=== PATIENT | male | born 1990 | race Caucasian/White ===

== ENCOUNTER 2021-07-05 18:45 | Emergency (ER) | payer OTHER, SELFPAY ==
[2021-07-05 19:21] VITALS: BP 184/99; PULSE 70; RESP 18; O2SAT 99; BMI 23.6
--- NOTE | 2021-07-05 19:46 | W.ED.ANIMALB ---
HPI - Animal Bite General: Chief Complaint: Animal Bite Stated Complaint: dog bite Time Seen by Provider: 07/05/21 19:46 History of Present Illness: 30-year-old male patient comes in today with a dog bite. Patient has bite to his left flank. 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 Patient was monitoring 2 dogs in front of them but one of the dogs got behind him and that at him. Patient ended up an abrasion to the left flank area of his back. Patient is concerned of rabies. Review of Systems General: Reports: 10 or more systems reviewed and unremarkable except in HPI and below Resp: Denies: dyspnea GI: Denies: abdominal pain Musc: Reports: back pain Skin/Breast: Reports: erythema and new lesions Physical Exam Const: COMMON NORMALS: alert HENMT: COMMON NORMALS: normocephalic HEAD & SCALP: normocephalic Neck/C-Spine: COMMON NORMALS: full ROM Resp: COMMON NORMALS: normal respiratory effort Cardio: COMMON NORMALS: regular rate RATE: regular rate Back/Pelvis: LUMBAR SPINE/LOWER BACK: Yes lumbar ROM normal and Yes other soft tissue findings (L-shaped 6 cm abrasion) Other lumbar soft tissue findings laterality: left Extremity: COMMON NORMALS: normal to inspection Neuro: SENSORIUM/ORIENTATION: Yes alert Skin: TRAUMA: abrasion (Left flank) Course Vital Signs: Vital signs: Vital Signs Pulse Rate 70 07/05/21 19:21 Respiratory Rate 18 07/05/21 19:21 Blood Pressure 184/99 07/05/21 19:21 Pulse Oximetry 99 07/05/21 19:21 [facility] - Animal Bite Medical Decision Making 30-year-old male patient comes in today with injury sustained from a animal bite. On exam patient had a 4 cm L-shaped abrasion to his left flank. Patient has some soft tissue tenderness. Superficial breakage of the skin was noted. Differential diagnosis includes abrasion, laceration, need for prophylaxis tetanus, postexposure rabies vaccinations. Reviewed exam with patient with recommendations of treatment for tetanus and prophylaxis antibiotics. Patient is concerned for rabies prompted initiation of postexposure rabies exposure. Discharge Plan Discharge Patient Disposition: Home Clinical Impression: Dog bite Condition: Stable Prescriptions: New cephalexin 500 mg capsule 500 mg PO BID 7 Days Qty: 14 0RF Discharge Orders: Discharge ED (Routine); Ordered 07/05/21 Ordered By: Esteban Drummond Patient Instructions: Opioid Safety Activity Restrictions/Additional Instructions: Home and rest. Activity as tolerated. Acetaminophen or ibuprofen for pain. Take antibiotic as directed. Follow-up for continuation of rabies postexposure treatment. Return to ER for new concerns. Coding Level of Care Code ED [employer] D[employer] for Nneka Wallis
[2021-07-05] MEDS: tetanus-dipt-pertussis 0.5 mL SDV IM (20:00)
[2021-07-05] MEDS: cephALEXin 500 mg Capsule PO (20:02)
[2021-07-05] MEDS: rabies vaccine 2.5 unit SDV IM (20:27)
== END 2021-07-05 21:09 | disposition home or self-care (01) ==
PROVIDERS: Emergency Provider Nurse Practitioner Family
DX: S31.050A Open bite of lower back and pelvis without penetration into retroperitoneum, initial encounter (principal); S30.810A Abrasion of lower back and pelvis, initial encounter; W54.0XXA Bitten by dog, initial encounter; Z29.14 Encounter for prophylactic rabies immune globulin; Z23 Encounter for immunization
CPT/HCPCS: 90375; 90471; 90675; 90715; 99283